=== PATIENT | male | born 1990 | race African-American/Black ===

== ENCOUNTER 2020-03-23 16:42 | Emergency (ER) | payer OTHER, MEDICAID, SELFPAY ==
[2020-03-23 17:22] VITALS: BP 113/83; PULSE 79; RESP 16; TEMP 36.4; O2SAT 99
--- NOTE | 2020-03-23 17:29 | ED.DENTAL ---
HPI - Dental/Oral General Chief complaint: Dental/Oral Stated complaint: Dental/Oral Time Seen by Provider: 03/23/20 17:29 Source: patient Mode of arrival: ambulatory Limitations: no limitations History of Present Illness HPI Narrative: Eric Baker is a 29 yo male with no PMH see express care with dental pain in the right back molar that has been bothering him for a month but is worse in the last day or 2; there is minor swelling in the gums Related Data Home Medications Medication Instructions Recorded Confirmed trazodone 100 mg PO HS 03/23/20 03/23/20 Allergies Allergy/AdvReac Type Severity Reaction Status Date / Time No Known Allergies Allergy Verified 03/23/20 17:34 Review of Systems Review of Systems: Narrative: CONSTITUTIONAL: Denies fever, chills, sweats. EYES: Denies visual changes, redness, discharge. ENT: Denies rhinorrhea, congestion, sore throat, otalgia. Right lower tooth pain CARDIOVASCULAR: Denies chest pain, palpitations, edema. RESPIRATORY: Denies dyspnea, wheezing, cough GASTROINTESTINAL: Denies abdominal pain, nausea, vomiting, diarrhea. GENITOURINARY: Denies dysuria, hematuria, abnormal discharge SKIN: Denies rash or itching. NEUROLOGIC: Denies numbness, or focal weakness. PSYCHIATRIC: Denies anxiety or depression. PMFSH Past Medical History Medical History No acute medical problems Family History Family History Other Diabetes mellitus Hypertension No acute medical problems Social History Social History Smoking status: Never smoker Alcohol intake: current Comments At time of signature, I agree with nursing past medical, surgical, social and family history. There is no relevant family history pertinent to the presenting complaint. Exam Narrative: Exam Narrative: GENERAL: This is a well-nourished, well-developed patient, in mild distress. HEAD: normocephalic, atraumatic. EYES: Sclera clear/white. Vision is grossly intact. EARS: External ears normal,. Hearing grossly intact. NOSE: External nose normal without nasal discharge, nares without redness, no rhinorrhea. THROAT: Mucous membranes moist, right lower molar pain, tooth 32, red redness, minor swelling tooth intact NECK: Neck supple, CARDIOVASCULAR: Regular rate and rhythm without murmurs, gallops, or rubs. RESPIRATORY: Clear to auscultation. Breath sounds equal bilaterally. No wheezes, rales, or rhonchi. GASTROINTESTINAL: Abdomen soft, SKIN: warm, intact with no suspicious lesions or rash, good texture and turgor. NEURO: awake, alert, and oriented to person, place and time. There were no obvious focal neurologic abnormalities. Steady gait EXTREMITIES: Normal range of motion. BACK: Nontender without deformity Course Course Emergency Course: Patient came to [facility] with more pain that lasted for last month and has gotten worse the last day or 2 Started on penicillin and tramadol Follow-up with dentist Vital Signs Vital signs: Vital Signs Temperature 97.6 F 03/23/20 17:22 Pulse Rate 79 03/23/20 17:22 Respiratory Rate 16 03/23/20 17:22 Blood Pressure 113/83 03/23/20 17:22 Pulse Oximetry 99 03/23/20 17:22 Temperature 97.6 F 03/23/20 17:35 Pulse Rate 79 03/23/20 17:35 Respiratory Rate 16 03/23/20 17:35 Blood Pressure 113/83 03/23/20 17:35 Pulse Oximetry 99 03/23/20 17:35 MDM - Dental/Oral Differential Diagnosis Differential diagnosis: Likely gingival abscess, toothache, fracture of tooth and other Critical Care Time Critical Care Time Critical Care Time: No Discharge Plan Discharge Clinical Impression: Toothache Patient Disposition: Home, Self-Care Condition: Stable Instructions: Antibiotic Form, Toothache (ED) Additional Instructions: Complete antibiotic prescription use pain me
[2020-03-23 17:35] VITALS: BP 113/83; PULSE 79; RESP 16; TEMP 36.4; O2SAT 99
== END 2020-03-23 17:52 | disposition home or self-care (01) ==
PROVIDERS: Emergency Provider Nurse Practitioner; PCP Family Medicine
DX: K08.89 Other specified disorders of teeth and supporting structures (principal)
CPT/HCPCS: 99213; G0463